=== PATIENT | female | born 1990 | race Caucasian/White ===

== ENCOUNTER 2017-07-01 20:43 | Inpatient (IN) | payer BC, MEDICAID ==
[2017-07-02] MEDS ORDERED: RINGER'S SOLUTION,LACTATED 1,000 ML IV ONE (00:05)
[2017-07-02] MEDS ORDERED: OXYTOCIN/DEXTROSE 5%-WATER 30 UNITS/500 ML BAG IV ONE ×2 (00:05→15:06)
[2017-07-02] MEDS ORDERED: LIDOCAINE HCL 50 ML VIAL PERI PRN (00:05)
[2017-07-02] MEDS ORDERED: RINGER'S SOLUTION,LACTATED 1,000 ML IV PRN (00:05)
[2017-07-02] MEDS ORDERED: NALOXONE HCL 1 MG/1 ML SYRG IV PRN (04:23)
[2017-07-02] MEDS ORDERED: ONDANSETRON HCL/PF 2 MG/ML VIAL IV PRN (04:23)
[2017-07-02] MEDS ORDERED: BUPIVACAINE HCL/0.9 % NACL/PF 250 ML EP PRN (04:23)
--- NOTE | 2017-07-02 05:21 | OR ---
Anesthesia Pre Procedure Eval Date of Service: 07/02/17 Pre Procedure Evaluation: Anesthesia Pre Procedure Evaluation Heart Rate: 97 Blood Pressure: 131/70 Temperature: 36.9C Respiratory Rate: 20 SaO2: 96 DATE: 07/02/2017 TIME: 05 15 INDICATIONS: Active labor, labor pain PAST MEDICAL HISTORY: Positive for patient being induced at 4 cm dilatation requesting labor analgesia. Previous labor epidural, by patient account, were particularly difficult requiring 2 hours for insertion. History of GERD: No History of smoking: No EXAM: Heart regular; lungs clear ASSESSMENT OF MEDICAL STATUS: Appropriate candidate for labor analgesia PLANNED PROCEDURE: Combination spinal epidural for labor analgesia Home Medications: HOME MEDICATIONS Vits96/Iron Fum/Folic [ S] 1 tab PO DAILY 07/01/17 [Last Taken Unknown] Magnesium Oxide [Magnesium] 250 mg PO DAILY 07/02/17 [Last Taken Unknown]
[2017-07-02] MEDS: fentaNYL CITRATE/PF 50 MCG/ML AMPUL IT SCH ×2 (05:45→14:30)
--- NOTE | 2017-07-02 05:52 | OR ---
Anesthesia Procedure Note - Anesthesia Procedure Note Date of Service: 07/02/17 Narrative: 07/02/17 05:49 ANESTHESIA PROCEDURE NOTE Date of Procedure: 07/02/2017 Time of procedure: 5:15. Performed by: JAH Ribera CRNA, MSN Paper Counter: Mabel Hunter RN. Preprocedure diagnosis: Active labor, labor pain. Post procedure diagnosis: Same. Procedure:Epidural for labor analgesia L3 4. Indications: Labor pain. Findings: See below. Details of the procedure: The patient was placed on the side of the bed in sitting positionand prepped with DuraPrep then draped in a sterile fashion. Lidocaine 1% was infiltrated to the skin and subcutaneous tissues at the level of the L3 4 interspace. An 18-gauge Touhy needle was used to approach the epidural space with loss of resistance technique. Once loss of resistance was achieved, a bit a 24-gauge Pencan needle was passed through the epidural needle and CSF was contacted. After CSF returned, 20 mcg of fentanyl was injected in the spinal needle was removed the epidural catheter was then threaded approximately 4 cm in the epidural needle was removed. The catheter was taped in place and after careful aspiration 3 mL of 1.5% lidocaine with 1-200,000 epinephrine was injected without change in maternal heart rate or sensorium. . EBL: Minimal. Fluids: N/A. Specimen: N/A. Post procedure condition: The patient tolerated the procedure well with good relief. No complications were noted. Thank you for this consultation. Angel Stanley CRNA, JAH, MSN
[2017-07-02] MEDS: DEXTROSE 5%-LACTATED RINGERS 1,000 ML IV PRN ×3 (06:12→13:53)
--- NOTE | 2017-07-02 13:24 | PN ---
Progess Note - Interim Narrative: 07/02/17 13:24 Patient comfortable with epidural Vital signs stable. Pitocin at 20 mu/min. FHT:150 baseline, reassuring Contractions q 3-4 min Cervix: 4/60/-3, AROM - clear fluid Impression: Intrauterine at 39 weeks protracted labor Plan: Continue present plan
[2017-07-02] MEDS ORDERED: fentaNYL CITRATE/PF 50 MCG/ML AMPUL ONE (14:12)
[2017-07-02] MEDS ORDERED: fentaNYL CITRATE/PF 50 MCG/ML AMPUL IT ONE (14:14)
--- NOTE | 2017-07-02 14:47 | OR ---
Anesthesia Procedure Note - Anesthesia Procedure Note Date of Service: 07/02/17 Narrative: Vital Signs - Last Taken Temp 36.7 C 07/02/17 13:49 Pulse 98 07/02/17 13:49 Resp 16 07/02/17 13:49 BP 130/80 07/02/17 13:49 Pulse Ox 98 07/02/17 13:49 07/02/17 14:42 ANESTHESIA PROCEDURE NOTE Date of Procedure: 07/02/2017 Time of procedure: 1430. Performed by: JAH Ribera CRNA, MSN Furnace Tapper: Mabel Camarillo RN. Preprocedure diagnosis: Active labor, labor pain, failed epidural. Post procedure diagnosis: Same. Procedure: Intrathecal for labor analgesia L3 4. Indications: Labor pain, unresponsive to bupivacaine 0.25% bolus via epidural. Findings: See below. Details of the procedure: The patient was placed on the side of the bed in sitting positionand prepped with DuraPrep then draped in a sterile fashion. Lidocaine 1% was infiltrated to the skin and subcutaneous tissues at the level of the L3 4 interspace just left lateral to the epidural insertion site. A 24- gauge Pencan needle was inserted through an introducer and I was unable to contact CSF. After removing the introducer a #24-gauge Pencan needle was still inadequate length to reach CSF. An 18-gauge Touhy needle was used to approach the epidural space with loss of resistance technique. Once loss of resistance was achieved a 27-gauge spinal needle was passed through the epidural needle and CSF was contacted. After CSF returned, 20 mcg of fentanyl with 4 mg of bupivacaine was injected in the spinal needle was removed then the epidural needle was removed. EBL: Minimal. Fluids: N/A. Specimen: N/A. Post procedure condition: The patient tolerated the procedure well with good relief. No complications were noted. Thank you for this consultation. Angel Stanley CRNA, TWISTING PRESS OPERATOR, MSN
[2017-07-02] MEDS ORDERED: HYDROCORTISONE 30 APPL TUBE TP PRN (15:06)
[2017-07-02] MEDS ORDERED: GLYCERIN/WITCH HAZEL LEAF 40 APPL BOX TP PRN (15:06)
[2017-07-02] MEDS ORDERED: oxyCODONE HCL/ACETAMINOPHEN 1 TAB TABLET PO PRN (15:06)
[2017-07-02] MEDS ORDERED: BISACODYL 10 MG SUPP.RECT RC PRN (15:06)
[2017-07-02] MEDS ORDERED: BENZOCAINE/MENTHOL 81 SPRAY CAN TP PRN (15:06)
[2017-07-02] MEDS ORDERED: SENNOSIDES 8.6 MG TABLET PO PRN (15:06)
--- NOTE | 2017-07-02 15:17 | OR ---
Operative Report - Dictated Report Narrative: Spontaneous vaginal delivery of viable male at 1448 on 07/02/2017 with Apgars 8 and 9, weighing 3547 g in OA position with a tight nuchal cord 1. Cord clamping delayed approximately 1 minute Placenta delivered complete, intact, with three vessel cord Estimated blood loss: less than 50 ml Lacerations: Periurethral abrasion - no repair needed
[2017-07-02] MEDS: oxyCODONE HCL/ACETAMINOPHEN 1 TAB TABLET PO PRN ×2 (18:18→21:27)
[2017-07-02] MEDS: IBUPROFEN 800 MG TABLET PO PRN (18:19)
[2017-07-02] MEDS: DOCUSATE SODIUM 100 MG CAPSULE PO SCH (21:27)
[2017-07-03] MEDS: IBUPROFEN 800 MG TABLET PO PRN ×3 (01:53→15:30)
[2017-07-03] MEDS: oxyCODONE HCL/ACETAMINOPHEN 1 TAB TABLET PO PRN ×4 (01:53→15:30)
[2017-07-03] MEDS: PRENATAL VITS96/IRON FUM/FOLIC 1 TAB TABLET PO SCH (08:07)
[2017-07-03] MEDS: DOCUSATE SODIUM 100 MG CAPSULE PO SCH ×2 (08:07→20:51)
[2017-07-03] MEDS: MAGNESIUM OXIDE 400 MG TABLET PO SCH (08:07)
--- NOTE | 2017-07-03 12:34 | PN ---
Subjective - Date and Time Seen Date: 07/03/17 Time: 12:33 Objective - Vitals Vitals: Last Vital Signs Temp 36.7 C 07/03/17 07:30 Pulse 86 07/03/17 07:30 Resp 18 07/03/17 07:30 BP 121/61 07/03/17 07:30 Pulse Ox 98 07/03/17 07:30 Patient denies complaints. Lochia wnl Abdomen - soft, nontender Uterus - firm, at umbilicus - 1 No calf tenderness Impression: day #1 - s/p spontaneous vaginal delivery. Plan: Continue routine care Cauti Physician Documentation - Urinary Catheter Management Urethral (Simmons) Date of Insertion: 07/02/17 Time of Insertion: 06:30
[2017-07-04] MEDS: oxyCODONE HCL/ACETAMINOPHEN 1 TAB TABLET PO PRN (00:31)
[2017-07-04] MEDS: IBUPROFEN 800 MG TABLET PO PRN ×2 (00:31→06:54)
[2017-07-04 07:36] VITALS: BP 133/86
[2017-07-04] MEDS: PRENATAL VITS96/IRON FUM/FOLIC 1 TAB TABLET PO SCH (08:23)
[2017-07-04] MEDS: DOCUSATE SODIUM 100 MG CAPSULE PO SCH (08:23)
[2017-07-04] MEDS: MAGNESIUM OXIDE 400 MG TABLET PO SCH (08:23)
--- NOTE | 2017-07-04 13:17 | PN ---
Subjective - Date and Time Seen Date: 07/04/17 Time: 13:13 Objective - Vitals Vitals: Last Vital Signs Temp 36.7 C 07/04/17 07:26 Pulse 73 07/04/17 07:26 Resp 16 07/04/17 07:26 BP 133/86 07/04/17 07:26 Pulse Ox 98 07/04/17 07:26 Patient denies complaints. Lochia wnl Abdomen - soft, nontender Uterus - firm, at umbilicus - 2 No calf tenderness Impression: day #2 - s/p spontaneous vaginal delivery. Asthma-not active. Morbid obesity. Plan: Routine discharge instructions Cauti Physician Documentation - Urinary Catheter Management Urethral (Simmons) Date of Insertion: 07/02/17 Time of Insertion: 06:30
== END 2017-07-04 14:00 | disposition home or self-care (01) | DRG 775 ==
LOC: OBCLINIC 20:43 → OB 07-02 00:04 → MS 07-03 19:53
PROVIDERS: ADMIT Obstetrics & Gynecology; ATTEND Obstetrics & Gynecology
PROC: 10E0XZZ Delivery of Products of Conception, External Approach (ICD-10-PCS; principal; 2017-07-02)
PROC: 10907ZC Drainage of Amniotic Fluid, Therapeutic from Products of Conception, Via Natural or Artificial Opening (ICD-10-PCS; 2017-07-02)
PROC: 4A1HXCZ Monitoring of Products of Conception, Cardiac Rate, External Approach (ICD-10-PCS; 2017-07-02)
PROC: 00HU33Z Insertion of Infusion Device into Spinal Canal, Percutaneous Approach (ICD-10-PCS; 2017-07-02)
DX: O69.1XX0 Labor and delivery complicated by cord around neck, with compression, not applicable or unspecified (principal); Z68.41 Body mass index [BMI] 40.0-44.9, adult; O99.214 Obesity complicating childbirth; E66.01 Morbid (severe) obesity due to excess calories; J45.20 Mild intermittent asthma, uncomplicated; Z3A.39 39 weeks gestation of pregnancy; Z37.0 Single live birth